=== PATIENT | male | born 1950 | race Caucasian/White ===

== ENCOUNTER → 2024-04-12 | Outpatient (CLI) | payer MEDICARE ==
[2024-04-12 15:16] LABS: Basophils # (A) 0.04 X 10*3/uL (0.00-0.10); Basophils % (A) 0.5 %; Eosinophils % (A) 3.8 %; HCT 41.8 % (39.6-50.0); HGB 13.3 g/dL (13.0-17.0); Lymphocytes # (A) 0.64 X 10*3/uL (0.90-5.00); MCH 29.4 pg (27.0-32.0); MCHC 31.8 g/dL (32.0-37.0); MCV 92.3 FL (80.0-97.0); Mean Platelet Volume 10.5 FL (9.5-12.2); Monocytes # (A) 0.58 X 10*3/uL (0.20-1.00); Monocytes % (A) 7.3 %; NRBC Per 100 WBC 0 X 10*3/uL (0.00-0.01); Neutrophils # (A) 6.37 X 10*3/uL (1.80-7.70); Platelet Count 285 X 10*3/uL (140-440); RBC 4.53 X 10*6/uL (4.40-5.60); RDW 13.7 % (11.5-14.5); WBC 7.96 X 10*3/uL (4.50-10.00)
[2024-04-12 15:36] LABS: BUN/Creat Ratio 15.86 Ratio (12.00-20.00); Blood Urea Nitrogen 22.2 mg/dL (9.0-27.0); Calcium 9.8 mg/dL (8.7-10.3); Carbon Dioxide 24.9 mmol/L (21.6-31.8); Chloride 104 mmol/L (96-109); Glucose 90 mg/dL (70-110); Sodium 142 mmol/L (135-145)
== END | disposition home or self-care (01) ==
LOC: LABWHC1 11:01
PROVIDERS: ATTEND Urology
DX: N40.1 Benign prostatic hyperplasia with lower urinary tract symptoms
CPT/HCPCS: 36415; 80048; 85025

== ENCOUNTER → 2024-07-17 | Outpatient (CLI) | payer MEDICARE ==
[2024-07-17 13:29] VITALS: BP 184/93; PULSE 71; RESP 16
--- NOTE | 2024-07-17 14:53 | P.PAINPG ---
Objective - Vital Signs Vital signs: Intake & Output 07/16/24 07/17/24 07/17/24 18:59 06:59 18:59 Weight 109.769 kg PQRS Measure Charge Sheet Comment: HISTORY OF PRESENT ILLNESS: A 73 yr old male w at side as a referral from [facility] presents today w severe and chronic LBP > 1 yr secondary to radiculopathy, spondylosis and facet arthropathy without myelopathy for evaluation. Pt states pain level is provoked at 8 /10 in intensity, constant, localized in the lumbar spine, predominantly axial, in character w occasional shooting pain towards the buttocks, hips, and LEs. Pain is provoked by bending, standing/ walking for periods > 10 min. Pain is alleviated by PT x 6 wks which ended in May 2024, physician guided home stretches daily since May 2024, heat, medications (Neurontin, Robaxin, Tyl), topical Icy-Hot, repositioning and rest . Oswestry axial pain score at 32. PMH: OA, NIDDM II, MDD, HTN, Hyperlipidemia, Hypothyroidism, Iron Deficiency, Asthma, BPH PSH: Denies SH: Negative x3 FH: Non contributory All: See list Meds: See list incl ASA, THC REVIEW OF ORGAN SYSTEMS: CONSTITUTIONAL: No fevers or chills. No recent weight loss. NEUROLOGICAL: + numbness and tingling along the distal ex tremities. No seizure disorders or headaches. MUSCULOSKELETAL: + pain PSYCHIATRIC: Denies current depression or suicidal thoughts. Physical Examinations : Constitutional : Cooperative , not in acute distress . Neurologic : Cranial nerve II to XII intact. No focal neurological deficits. Psychiatric : alert & oriented x 3. Matching mood & appropriate affect. Judgment & insight intact. Musculoskeletal : Cervical Spine Motor strength in the deltoid and biceps: Normal right side. Normal Left side Motor strength biceps and the wrist extensors: Normal right side . Normal left side Motor strength in the triceps muscle: Normal right side. Normal left side Deep tendon reflexes: Normal at the biceps. Normal at Brachioradialis. Normal at triceps Vertebral body tenderness to deep palpation over Cervical facet loading test: positive bilaterally Spurling test: positive bilaterally Neck distraction test: positive bilaterally Misbah sign: positive bilaterally Lumbar spine Motor strength lower extremities ,thigh and legs 5/5 Right side , 5/5 Left side Deep tendon reflexes : Normal Knee Jerk. Normal Ankle Jerk Vertebral body tenderness over L2 Ferrell Test positive BL L2-L3 Lumbar facet Loading Test: positive Right / positive Left Range of motion of the lumbar spine Flexion 30 degrees, extension 10 degrees Straight Leg Raise test: Left/ Right positive at degrees Pastora test: positive right / positive left. Severe tenderness over the Sacroiliac joint on the Right / Left sides Gaenslen test: positive bilaterally Seated flexion test: positive bilatera lly. Sacral spine : Severe tenderness over the Sacroiliac joint: right side / left side Range of motion: Flexion of the lumbar spine <60 degrees Range of motion: Extension of the lumbar spine <20 degrees Gaenslen's Test positive Pastora test: positive right side / left side Thigh Thrust Test Sacral Thrust Test Imaging: MRI non cotnrast lumbar spien from 05/22/24 reviewed Assessment/ Plan : L2-L3 & L5-S1 radiculopathy Recommendation of BRIANA L2-L3 #1. Would benefit from BRIANA L5-S1 also. Risks, benefits of procedure discussed and patient verbalized understanding. Admits to anti- coagulant use or medical history of diabetes. Protocol for discontinuation/ continuation of medications ishmael procedure discussed. All questions answered. I have spent greater than 30 minutes on patient care today. Dr Jimenez was available by phone for the evaluation of this patient. The time was used to review the medical records including relevant urine studies and Prescription history (MAPs), review of the available imaging, evaluation and examination of the patient, coordination of care with the medical staff and if applicable referring physicians, as well as creation of the medical record Controlled Substance Measures - Controlled Substance Measures Is patient prescribed a controlled substance at discharge?: No
== END ==
LOC: PNWHC3 12:58
PROVIDERS: ATTEND Specialist
DX: M47.27 Other spondylosis with radiculopathy, lumbosacral region (principal); Z88.5 Allergy status to narcotic agent
CPT/HCPCS: 99202

== ENCOUNTER → 2024-08-10 | Day surgery (SDC) | payer MEDICARE ==
[~2024-08-10] MED LIST: IOPAMIDOL M300 15ML VIAL ONE; LACTATED RINGERS 1,000 ML IV SCH; methylPREDNISolone ACETATE 80 MG/ML 1 ML VIAL ONE
[2024-08-10 09:24] VITALS: TEMP 97.8
[2024-08-10 09:31] LABS: Glucose,Whole Blood 95 mg/dL (70-110)
--- NOTE | 2024-08-10 10:30 | P.PCN ---
Description of Procedure: PREOPERATIVE DIAGNOSIS: 1- Lumbar Degenerative Disc Diseases 2-Lumbar spondylosis with Facet arthropathy without myelopathy. 3-lumbar spinal stenosis POSTOPERATIVE DIAGNOSIS: 1-lumbar degenerative disc disease. 2-lumbar spondylosis with facet arthropathy without myelopathy. 3-lumbar spinal stenosis. PROCEDURE Injection of radio contrast material into L2-3interspace, interpretation of epidurogram, injection of steroid at L2-3 epidural space under fluoroscopic guidance. ANESTHESIA: Lidocaine 1% subcutaneously. In OR continuous pulse ox, EKG, blood pressure and verbal communication was maintained with the patient. EBL: Minimal PROCEDURE INDICATION: Before the procedure were discussed with the patient detailed procedure, alternatives, complications including infection, bleeding, nerve damage, paralysis all of which could be permanent. Patient understands and all questions were answered. PROCEDURE DESCRIPTION : After getting consent, patient in OR in prone position. Back was prepped with chlorhexidine and draped in sterile fashion. After injecting 10 mL of 1% lidocaine subcutaneously, a 20-gauge Tuohy needle was introduced at L2-3 interspace with loss of resistance technique using a syringe filled with air. Negative CSF, negative blood, negative paresthesia. Needle position was confirmed with AP and lateral view of the fluoroscope. After repeat negative aspiration 2 mL of Omnipaque 200 water soluble contrast was injected. Contrast was noted in the epidural space. No contrast was noted into intrathecal or intravascular space. After repeat negative aspiration 6 mL solution was injected intermittently which consists of 5 mL of preservative-free normal saline mixed with 1 mL of 80 mg Depo-Medrol. Needle was withdrawn intact. Skin was cleansed and Band-Aids was applied. DISPOSITION / PLANS: The patient tolerated the procedure well. No complication. The patient was placed in a supine position and transferred to the recovery area in a stable condition for observation. There was no evidence of lower extremity motor or sensory deficit after the procedure. Patient was discharged from the recovery room after meeting discharge criteria. Home discharge instructions were given to the patient by the staff. The patient was reexamined prior to discharge. The patient will schedule a follow up in the clinic in 2-4 weeks.
[2024-08-10 10:35] VITALS: BP 153/86; PULSE 72; RESP 16
--- NOTE | 2024-08-10 12:09 | FL ---
EXAMINATION TYPE: FL guided pain mgmt statistic DATE OF EXAM: 08/10/2024 FLUOROSCOPY LUMBAR EPIDURAL STEROID INJECTION, 22 SEC FUORO, DAP .[id number] mGym2 2 images are submitted. [facility], Workstation: [email or web address], 08/10/2024 12:06 PM
== END ==
LOC: ORPAIN 08:48
PROVIDERS: ATTEND Pain Medicine Interventional Pain Medicine
DX: M47.816 Spondylosis without myelopathy or radiculopathy, lumbar region (principal); M48.061 Spinal stenosis, lumbar region without neurogenic claudication; M51.369 Other intervertebral disc degeneration, lumbar region without mention of lumbar back pain or lower extremity pain; Z88.5 Allergy status to narcotic agent; Z79.82 Long term (current) use of aspirin
CPT/HCPCS: 62323; Q9967; J1010

== ENCOUNTER → 2024-08-29 | Outpatient (CLI) | payer MEDICARE ==
[2024-08-29 12:59] VITALS: BP 176/97; PULSE 77; RESP 16; TEMP 97.3
--- NOTE | 2024-08-29 15:46 | P.PAINPG ---
PQRS Measure Charge Sheet Comment: HISTORY OF PRESENT ILLNESS: A 73 yr old male w at side presents today w severe and chronic LBP > 1 yr secondary to radiculopathy, spondylosis and facet arthropathy without myelopathy for evaluation s/p BRIANA L2-L3 #1. Pt states he experienced 90 % pain relief x 3 wks s/p procedure. Pt states pain level is provoked at 6 /10 in intensity, intermittent, localized in the lumbar spine, predominantly axial, achy in character w occasional shooting pain towards the back of the LEs. Pain is provoked by bending, standing/ walking for periods > 10 min. Pain is alleviated by PT x 6 wks which ended in May 2024, physician guided home stretches daily since May 2024, heat, medications, topical, repositioning and rest . Interventional procedures include BRIANA L2-L3 x1 Medications include Neurontin, Robaxin, Tyl, Icy-Hot REVIEW OF ORGAN SYSTEMS: CONSTITUTIONAL: No fevers or chills. No recent weight loss. NEUROLOGICAL: + numbness and tingling along the distal extremities. No seizure disorders or headaches. MUSCULOSKELETAL: + pain PSYCHIATRIC: Denies current depression or suicidal thoughts. Physical Examinations : Constitutional : Cooperative , not in acute distress . Neurologic : Cranial nerve II to XII intact. No focal neurological deficits. Psychiatric : alert & oriented x 3. Matching mood & appropriate affect. Judgment & insight intact. Musculoskeletal : Cervical Spine Motor strength in the deltoid and biceps: Normal right side. Normal Left side Motor strength biceps and the wrist extensors: Normal right side . Normal left side Motor strength in the triceps muscle: Normal right side. Normal left side Deep tendon reflexes: Normal at the biceps. Normal at Brachioradialis. Normal at triceps Vertebral body tenderness to deep palpation over Cervical facet loading test: positive bilaterally Spurling test: positive bilaterally Neck distraction test: positive bilaterally Misbah sign: positive bilaterally Lumbar spine Motor strength lower extremities ,thigh and legs 5/5 Right side , 5/5 Left side Deep tendon reflexes : Normal Knee Jerk. Normal Ankle Jerk Vertebral body tenderness over L5 Ferrell Test positive BL L5-S1 Lumbar facet Loading Test: positive Right / positive Left Range of motion of the lumbar spine Flexion 30 degrees, extension 10 degrees Straight Leg Raise test: Left/ Right positive at degrees Pastora test: positive right / positive left. Severe tenderness over the Sacroiliac joint on the Right / Left sides Gaenslen test: positive bilaterally Seated flexion test: positive bilaterally. Sacral spine : Severe tenderness over the Sacroiliac joint: right side / left side Range of motion: Flexion of the lumbar spine <60 degrees Range of motion: Extension of the lumbar spine <20 degrees Gaenslen's Test positive Pastora test: positive right side / left side Thigh Thrust Test Sacral Thrust Test Imaging: MRI non cotnrast lumbar spine from 05/22/24 reviewed Assessment/ Plan : L2-L3 & L5-S1 radiculopathy Recommendation of BRIANA L5-S1 #2. May benefit from BL lumbar MBBs. Risks, benefits of procedure discussed and patient verbalized understanding. Admits to anti- coagulant use or medical history of diabetes. Protocol for discontinuation/ continuation of medications ishmael procedure discussed. All questions answered. I have spent greater than 30 minutes on patient care today. Dr Jimenez was available by phone for the evaluation of this patient. The time was used to review the medical records including relevant urine studies and Prescription history (MAPs), review of the available imaging, evaluation and examination of the patient, coordination of care with the medical staff and if applicable referring physicians, as well as creation of the medical record PQRS Narrative: Hx Alcohol Use (MH) No Home Medications: Ambulatory Orders Aspirin 81 mg PO DAILY 08/08/24 Atorvastatin [Lipitor] 40 mg PO DAILY 08/08/24 EPINEPHrine (Auto Inject) [Epipen] 0.3 mg IM ONCE PRN 08/08/24 Escitalopram Oxalate [Lexapro] 10 mg PO DAILY 08/08/24 Finasteride [Proscar] 5 mg PO DAILY 08/08/24 Levothyroxine Sodium [Synthroid] 200 mcg PO DAILY 08/08/24 QUEtiapine FUMARATE [SEROquel] 200 mg PO HS 08/08/24 amLODIPine [Norvasc] 10 mg PO DAILY 08/08/24 buPROPion XL [Wellbutrin XL] 300 mg PO DAILY 08/08/24 carvediloL [Coreg] 12.5 mg PO BID 08/08/24 metFORMIN HCL [Glucophage] 1,000 mg PO BID 08/08/24 Albuterol Sulfate [Proair Digihaler] 1 puff INHALATION DAILY 08/29/24 Alfuzosin HCl [Alfuzosin HCl ER] 10 mg PO HS 08/29/24 Aspirin EC [Ecotrin] 325 mg PO DAILY 08/29/24 Ciprofloxacin HCl [Cipro] 500 mg PO Q12HR 08/29/24 Cyanocobalamin (Vitamin B-12) [Vitamin B-12] 1,000 mcg PO DAILY 08/29/24 Fluticasone Nasal [place] [Flonase Nasal [place]] 1 spray EA NOSTRIL DAILY 08/29/24 Sildenafil Citrate [Viagra] 100 mg PO DAILY 08/29/24 methocarbamoL [Robaxin-750] 750 mg PO TID 08/29/24 Controlled Substance Measures - Controlled Substance Measures Is patient prescribed a controlled substance at discharge?: No
== END ==
LOC: PNWHC3 12:26
PROVIDERS: ATTEND Specialist
DX: M54.17 Radiculopathy, lumbosacral region (principal); Z88.5 Allergy status to narcotic agent; Z88.8 Allergy status to other drugs, medicaments and biological substances
CPT/HCPCS: 99211

== ENCOUNTER 2024-09-25 06:20 | Day surgery (SDC) | payer MEDICARE ==
[2024-09-24 10:16] VITALS: BMI 34.2
[~2024-09-25 06:20] MED LIST changes: -IOPAMIDOL M300 15ML VIAL ONE; -methylPREDNISolone ACETATE 80 MG/ML 1 ML VIAL ONE
[2024-09-25 06:47] VITALS: TEMP 97.6
[2024-09-25 06:51] LABS: Glucose,Whole Blood 100 mg/dL (70-110)
[2024-09-25] MEDS ORDERED: LACTATED RINGERS 1,000 ML IV SCH (07:15)
[2024-09-25] MEDS ORDERED: methylPREDNISolone ACETATE 40 MG/ML 1 ML VIAL ONE (07:25)
[2024-09-25] MEDS ORDERED: IOPAMIDOL M200 10 ML VIAL ONE (07:25)
--- NOTE | 2024-09-25 07:35 | P.PCN ---
Date of Procedure: 09/25/24 Description of Procedure: Diagnosis: Lumbar spondylosis without myelopathy, and lumbar radiculopathy Procedure: L5-S1 Inter-Laminar Lumbar Epidural Steroid Injection under biplanar fluoroscopy Surgeon: Jany Hutchison Anesthesia: Local: 1% Lidocaine, IV sedation : None Complications: None Estimated blood loss: None Specimens removed: none. Fluoroscopic image: Saved to patient EMR. Indications for Procedure: The patient has been suffering from lower back pain and leg pain. Inadequate pain control with pharmacologic regimen. Came here for lumbar epidural steroid injection for better pain control. Procedure and Findings: The patient was seen and examined in the holding area. The written informed consent was obtained after explaining the risks, benefits, and alternatives of the procedure to the patient. The patient was brought to the procedure room and was placed in the prone position on the operating room table. A pillow was placed under the abdomen to reduce lumbar lordosis. The anesthesia was started as mentioned above and monitoring was done with noninvasive blood pressure cuff, EKG and pulse oximetry. The skin preparation was done with ChloraPrep and draping was done in usual sterile fashion. Sterile technique was observed throughout the procedure. Under fluoroscopic guidance, the L5-S1 inter-laminar space was identified. 3 ml of 1% Lidocaine was injected with a 25 gauge needle to achieve adequate local anesthesia of the skin and subcutaneous tissue. A 20 gauge, 3.5 inch Tuohy type epidural needle was placed and advanced up to the epidural space using loss of resistance technique and fluoroscopic guidance. No paresthesia was noted. A negative aspiration was confirmed and then 1.5 ml Isovue was injected. A good dye spread was seen in the epidural space and it was negative for any intrathecal, intraneural or intravascular spread. A total of 6 ml solution containing Depo-Medrol 40 mg with 5 mL of preservative-free Normal Saline was injected slowly with intermittent aspiration. The needle was removed intact, area was cleaned and bandage was applied. Disposition : The patient tolerated the procedure very well. The patient was transferred to the recovery room and remained stable until discharged home. The patient was given detailed discharge instructions for infection, bleeding, headache , leg weekness, and increased pain at the injection site, and was advised to seek immediate medical attention should significant side effects develop. The patient will be followed up with our Pain Clinic within 4 to 8 weeks for a repeat procedure if it is helpful.
--- NOTE | 2024-09-25 07:54 | FL ---
EXAMINATION TYPE: FL guided pain mgmt statistic DATE OF EXAM: 09/25/2024 CLINICAL INDICATION: Male, 74 years old with history of LESI; PHH, low back pain TECHNIQUE: Fluoroscopy. COMPARISON: None. FINDINGS: Fluoroscopic guidance was provided during pain relief procedure performed by Dr. Johnston. A total of 4.9 seconds of fluoroscopic time was utilized during the procedure and two spot images ar e acquired. Images acquired shows needle localization at the L5 level. Moderate disc space narrowing L5-S1 level is present. Total DAP: 0.31753 mGym2. IMPRESSION: As Above. [facility], , 09/25/2024 7:52 AM
[2024-09-25 07:57] VITALS: BP 153/83; PULSE 67; RESP 14
== END 2024-09-25 08:08 | disposition home or self-care (01) ==
LOC: ORPAIN 06:20
DX: M47.26 Other spondylosis with radiculopathy, lumbar region (principal); E11.9 Type 2 diabetes mellitus without complications; Z79.82 Long term (current) use of aspirin; Z79.84 Long term (current) use of oral hypoglycemic drugs; Z88.5 Allergy status to narcotic agent; Z88.8 Allergy status to other drugs, medicaments and biological substances
CPT/HCPCS: 62323; Q9966; J1010

== ENCOUNTER → 2024-10-15 | Outpatient (CLI) | payer MEDICARE ==
[2024-10-15 12:37] VITALS: BP 158/94; PULSE 70; RESP 17; TEMP 98.2
--- NOTE | 2024-10-15 15:17 | P.PAINPG ---
PQRS Measure Charge Sheet Comment: HISTORY OF PRESENT ILLNESS: A 74 yr old male w at side presents today w severe and chronic LBP > 1 yr secondary to radiculopathy, spondylosis and facet arthropathy without myelopathy for evaluation s/p BRIANA L5-S1 #2. Pt states he experienced 80 % pain relief x 2 wks s/p procedure. Pt states pain level is provoked at 5-6 /10 in intensity, intermittent, localized in the lumbar spine, predominantly axial, achy in character without shooting pain. Pain is provoked by standing, walking for periods > 15 min. Pain is alleviated by PT x 6 wks which ended in May 2024 (cerv), physician guided home stretches daily since May 2024, heat, medications, topical, repositioning and rest. Interventional procedures include BRIANA L2-L3 x1, L5-S1 x1 Medications include Neurontin, Robaxin, Tyl, Ibu, Icy-Hot REVIEW OF ORGAN SYSTEMS: CONSTITUTIONAL: No fevers or chills. No recent weight loss. NEUROLOGICAL: + numbness and tingling along the distal extremities. No seizure disorders or headaches. MUSCULOSKELETAL: + pain PSYCHIATRIC: Denies current depression or suicidal thoughts. Physical Examinations : Constitutional : Cooperative , not in acute distress . Neurologic : Cranial nerve II to XII intact. No focal neurological deficits. Psychiatric : alert & oriented x 3. Matching mood & appropriate affect. Judgment & insight intact. Musculoskeletal : Cervical Spine Motor strength in the deltoid and biceps: Normal right side. Normal Left side Motor strength biceps and the wrist extensors: Normal right side . Normal left side Motor strength in the triceps muscle: Normal right side. Normal left side Deep tendon reflexes: Normal at the biceps. Normal at Brachioradialis. Normal at triceps Vertebral body tenderness to deep palpation over Cervical facet loading test: positive bilaterally Spurling test: positive bilaterally Neck distraction test: positive bilaterally Misbah sign: positive bilaterally Lumbar spine Motor strength lower extremities ,thigh and legs 5/5 Right side , 5/5 Left side Deep tendon reflexes : Normal Knee Jerk. Normal Ankle Jerk Vertebral body tenderness over L5 Ferrell Test positive BL L5-S1 Lumbar facet Loading Test: positive Right / positive Left L4-L5, L5-S1 Range of motion of the lumbar spine Flexion 30 degrees, extension 10 degrees Straight Leg Raise test: Left/ Right positive at degrees Pastora test: positive right / positive left. Severe tenderness over the Sacroiliac joint on the Right / Left sides Gaenslen test: positive bilaterally Seated flexion test: positive bilaterally. Sacral spine : Severe tenderness over the Sacroiliac joint: right side / left side Range of motion: Flexion of the lumbar spine <60 degrees Range of motion: Extension of the lumbar spine <20 degrees Gaenslen's Test positive Pastora test: positive right side / left side Thigh Thrust Test Sacral Thrust Test Imaging: MRI non cotnrast lumbar spine from 05/22/24 reviewed Assessment/ Plan : L2-L3 & L5-S1 radiculopathy Recommendation of BL MBB L4-L5/ L5-S1 #1. Risks, benefits of procedure discussed and patient verbalized understanding. Admits to anti- coagulant use or medical history of diabetes. Protocol for discontinuation/ continuation of medications ishmael procedure discussed. Minimal anesthesia including Fentanyl and Versed if clinically indicated. All questions answered. I have spent greater than 30 minutes on patient care today. Dr Jimenez was available by phone for the evaluation of this patient. The time was used to review the medical records including relevant urine studies and Prescription history (MAPs), review of the available imaging, evaluation and examination of the patient, coordination of care with the medical staff and if applicable referring physicians, as well as creation of the medical record PQRS Narrative: Hx Alcohol Use (MH) No Home Medications: Ambulatory Orders Atorvastatin [Lipitor] 40 mg PO DAILY 08/08/24 EPINEPHrine (Auto Inject) [Epipen] 0.3 mg IM ONCE PRN 08/08/24 Escitalopram Oxalate [Lexapro] 10 mg PO DAILY 08/08/24 Finasteride [Proscar] 5 mg PO DAILY 08/08/24 Levothyroxine Sodium [Synthroid] 200 mcg PO DAILY 08/08/24 QUEtiapine FUMARATE [SEROquel] 200 mg PO HS 08/08/24 amLODIPine [Norvasc] 10 mg PO DAILY 08/08/24 buPROPion XL [Wellbutrin XL] 300 mg PO DAILY 08/08/24 carvediloL [Coreg] 12.5 mg PO BID 08/08/24 metFORMIN HCL [Glucophage] 1,000 mg PO BID 08/08/24 Albuterol Sulfate [Proair Digihaler] 1 puff INHALATION DAILY 08/29/24 Alfuzosin HCl [Alfuzosin HCl ER] 10 mg PO HS 08/29/24 Aspirin EC [Ecotrin] 325 mg PO DAILY 08/29/24 Cyanocobalamin (Vitamin B-12) [Vitamin B-12] 1,000 mcg PO DAILY 08/29/24 Fluticasone Nasal [place] [Flonase Nasal [place]] 1 spray EA NOSTRIL DAILY 08/29/24 Sildenafil Citrate [Viagra] 100 mg PO DAILY 08/29/24 methocarbamoL [Robaxin-750] 750 mg PO TID 08/29/24 Controlled Substance Measures - Controlled Substance Measures Is patient prescribed a controlled substance at discharge?: No
== END ==
LOC: PNWHC3 12:14
PROVIDERS: ATTEND Specialist
DX: M54.17 Radiculopathy, lumbosacral region (principal); Z88.5 Allergy status to narcotic agent; Z88.8 Allergy status to other drugs, medicaments and biological substances
CPT/HCPCS: 99212

== ENCOUNTER 2024-10-19 06:43 | Day surgery (SDC) | payer MEDICARE ==
[2024-10-17 16:20] VITALS: BMI 34.4
[2024-10-19 07:20] VITALS: RESP 16; TEMP 97.5
[2024-10-19 07:26] LABS: Glucose,Whole Blood 97 mg/dL (70-110)
[2024-10-19] MEDS: IV FLUID CONTINUATION 1,000 ML IV ONE ×2 (07:27→08:19)
[2024-10-19] MEDS: LACTATED RINGERS 1,000 ML IV SCH (07:27)
[2024-10-19] MEDS ORDERED: fentaNYL (PF) 50 MCG/ML 2 ML AMP ONE (08:04)
[2024-10-19] MEDS ORDERED: MIDAZOLAM 2 MG/2 ML VIAL ONE (08:04)
[2024-10-19] MEDS ORDERED: ROPIVACAINE 5MG/ML 20ML VIAL ONE (08:04)
[2024-10-19 08:35] VITALS: BP 151/89; PULSE 61
--- NOTE | 2024-10-19 09:13 | P.PCN ---
Date of Procedure: 10/19/24 Procedure(s) Performed: PREOPERATIVE DIAGNOSIS : 1- Lumbar spondylosis with Facet Arthropathy with out myelopathy . 2- Lumber degenerative disc disease POSTOPERATIVE DIAGNOSIS: 1- Lumbar spondylosis with Facet Arthropathy without myelopathy . 2- Lumber degenerative disc disease PROCEDURE: Diagnostic bilateral L3 , L4 , and L5 medial branch block under fluoroscopy guidance(fluoroscopy images available in the radiology Department ) ( To target the facet joint between Bilateral L4-5 , and L5-S1 )#1st ANESTHESIA: moderate sedation with intravenous Versed 1 mg and Fentanyl 50 mcg.(Sedation start time 08:04, end time 08:13 ) EBL: Minimal COMPLICATION: None PROCEDURE INDICATION: Chronic low back pain secondary to Facet arthropathy unresponsive to conservative treatment. PROCEDURE DESCRIPTION: the patient was seen and identified in the preop holding area , risks and benefits and possible complications of the procedure and alternative were discussed with the patient, and the patient agreed to proceed with the procedure and signed the consent and vital signs monitored during the procedure and fluoroscopy was used to maximize the benefit and accuracy of the needle placement, and sedation was given to decrease patient anxiety, patient was taken to the procedure room and placed in prone position vital signs monitored in the back prepped with chlorhexidine X3 then under strict sterile technique using a right oblique fluoroscopy ,the junction of the transverse process and the superior articulating process of the right L3 , L4 , and L5 vertebra which corresponding to the fluoroscopy image of the eye of the Shantanu dog on the block side for the medial branches and subsequently , after local infiltration of skin and subcu tissuies with Ropivacaine 0.5 % , one mL at each level ,then 23-gauge Quincke-type needles , 3 needle was used , each one of them placed at the junction of the base of the transverse process and the superior articular process at the appropriate level, and the needle was advanced until the periosteum contacted, needle placement confirmed with AP oblique and lateral view and after appropriate needle placement confirmed, and after negative aspiration for heme and CSF and there was no paresthesia 1-1/2 mL of Ropivacaine 0.5% used , then half mL injected at each level after negative aspiration the needle subsequently removed and the same procedure repeated for the left side at left side at L3 , L4 and L5 levels. At the end of the procedure and the needles removed and a bandage applied after the skin was cleaned the cleaning solution patient taken to recovery room in stable condition and monitors in the recovery room for 20-30 minutes and discharged home in stable condition after discharge criteria met and patient will follow up with the pain clinic in 2-4 weeks
--- NOTE | 2024-10-19 11:49 | FL ---
EXAMINATION TYPE: FL guided pain mgmt statistic DATE OF EXAM: 10/19/2024 11:23 AM COMPARISON: Pre Operative Images if available both CT/MRI or plain film CLINICAL INDICATION: Male, 74 years old with history of PAIN; TECHNIQUE: FL guided pain mgmt statistic, multiple fluoroscopic images provided for procedure. DAP: 0.15131 mGym2 Gycm2 uGym2 cGycm2 or equivalent. FINDINGS: Fluoroscopic images during injection for pain management demonstrate multilevel degeneration changes throughout the spine. No evidence for fracture. No acute process identified. IMPRESSION: 1. No evidence for intraoperative complication. 2. Please see the operative/procedural note for further details. [facility], , 10/19/2024 11:46 AM
== END 2024-10-19 08:54 | disposition home or self-care (01) ==
LOC: ORPAIN 06:43
PROVIDERS: ATTEND Specialist
DX: M47.816 Spondylosis without myelopathy or radiculopathy, lumbar region (principal); M51.369 Other intervertebral disc degeneration, lumbar region without mention of lumbar back pain or lower extremity pain; G89.29 Other chronic pain
CPT/HCPCS: 64493; 64494 ×2; J2250; J3010; J2795; 99152

== ENCOUNTER → 2024-11-05 | Outpatient (CLI) | payer MEDICARE ==
[2024-11-05 11:21] VITALS: BP 166/89; PULSE 77; RESP 16
--- NOTE | 2024-11-05 13:29 | P.PAINPG ---
Objective - Vital Signs Vital signs: Vital Signs Temp Pulse 77 11/05/24 11:17 Resp 16 11/05/24 11:17 BP 166/89 11/05/24 11:17 Pulse Ox 98 11/05/24 11:17 FiO2 Intake & Output 11/04/24 11/05/24 11/05/24 18:59 06:59 18:59 Weight 108.862 kg PQRS Measure Charge Sheet Mode of Arrival: Ambulatory Comment: HISTORY OF PRESENT ILLNESS: A 74 yr old male w at [facility] presents today w severe and chronic LBP > 1 yr secondary to radiculopathy, spondylosis and facet arthropathy without myelopathy for evaluation s/p BL MBB L4-L5/ L5-S1 #1. Pt states he experienced 80 % pain relief x 3 days s/p procedure. Pt states pain level is provoked at 6 /10 in intensity, intermittent, localized in the lumbar spine, predominantly axial, achy in character without shooting pain. Pain is provoked by standing, walking for periods > 15 min. Pain is alleviated by PT x 6 wks which ended in May 2024 (cerv), physician guided home stretches daily since May 2024, heat, medications, topical, repositioning and rest. Interventional procedures include BRIANA L2-L3 x1, L5-S1 x1, BL MBB L3-L5 x1 Medications include Neurontin, Robaxin, Tyl, Ibu, Icy-Hot REVIEW OF ORGAN SYSTEMS: CONSTITUTIONAL: No fevers or chills. No recent weight loss. NEUROLOGICAL: + numbness and tingling along the distal extremities. No seizure disorders or headaches. MUSCULOSKELETAL: + pain PSYCHIATRIC: Denies current depression or suicidal thoughts. Physical Examinations : Constitutional : Cooperative , not in acute distress . Neurologic : Cranial nerve II to XII intact. No focal neurological deficits. Psychiatric : alert & oriented x 3. Matching mood & appropriate affect. Judgment & insight intact. Musculoskeletal : Cervical Spine Motor strength in the deltoid and biceps: Normal right side. Normal Left side Motor strength biceps and the wrist extensors: Normal right side . Normal left side Motor strength in the triceps muscle: Normal right side. Normal left side Deep tendon reflexes: Normal at the biceps. Normal at Brachioradialis. Normal at triceps Vertebral body tenderness to deep palpation over Cervical facet loading test: positive bilaterally Spurling test: positive bilaterally Neck distraction test: positive bilaterally Misbah sign: positive bilaterally Lumbar spine Motor strength lower extremities ,thigh and legs 5/5 Right side , 5/5 Left side Deep tendon reflexes : Normal Knee Jerk. Normal Ankle Jerk Vertebral body tenderness over L5 Ferrell Test positive BL L5-S1 Lumbar facet Loading Test: positive Right / positive Left L4-L5, L5-S1 Range of motion of the lumbar spine Flexion 30 degrees, extension 10 degrees Straight Leg Raise test: Left/ Right positive at degrees Pastora test: positive right / positive left. Severe tenderness over the Sacroiliac joint on the Right / Left sides Gaenslen test: positive bilaterally Seated flexion test: positive bilaterally. Sacral spine : Severe tenderness over the Sacroiliac joint: right side / left side Range of motion: Flexion of the lumbar spine <60 degrees Range of motion: Extension of the lumbar spine <20 degrees Gaenslen's Test positive Pastora test: positive right side / left side Thigh Thrust Test Sacral Thrust Test Imaging: MRI non cotnrast lumbar spine from 05/22/24 reviewed Assessment/ Plan : L2-L3 & L5-S1 radiculopathy Recommendation of BL MBB L4-L5/ L5-S1 #2. Risks, benefits of procedure discussed and patient verbalized understanding. Admits to anti- coagulant use or medical history of diabetes. Protocol for discontinuation/ continuation of medications ishmael procedure discussed. Minimal anesthesia including Fentanyl and Versed if clinically indicated. All questions answered. I have spent greater than 30 minutes on patient care today. Dr Jimenez was available by phone for the evaluation of this patient. The time was used to review the medical records including relevant urine studies and Prescription history (MAPs), review of the available imaging, evaluation and examination of the patient, coordination of care with the medical staff and if applicable refer ring physicians, as well as creation of the medical record - Pain Location Bilateral Lower Back Non-Pharmacological Interventions: Inactivity, Physical Therapy, Position/Reposition, Stretching Pharmacological Interventions: Block, Epidural, PRN Medication, Topical Medication PQRS Narrative: Blood Pressure 166/89 Pain Intensity [Bilateral 6 Lower Back] Scale Used Numeric (1 - 10) Hx Alcohol Use (MH) No Home Medications: Ambulatory Orders Atorvastatin [Lipitor] 40 mg PO DAILY 08/08/24 EPINEPHrine (Auto Inject) [Epipen] 0.3 mg IM ONCE PRN 08/08/24 Escitalopram Oxalate [Lexapro] 10 mg PO DAILY 08/08/24 Finasteride [Proscar] 5 mg PO DAILY 08/08/24 Levothyroxine Sodium [Synthroid] 200 mcg PO DAILY 08/08/24 QUEtiapine FUMARATE [SEROquel] 200 mg PO HS 08/08/24 amLODIPine [Norvasc] 10 mg PO DAILY 08/08/24 buPROPion XL [Wellbutrin XL] 300 mg PO DAILY 08/08/24 carvediloL [Coreg] 12.5 mg PO BID 08/08/24 metFORMIN HCL [Glucophage] 1,000 mg PO BID 08/08/24 Albuterol Sulfate [Proair Digihaler] 1 puff INHALATION DAILY 08/29/24 Alfuzosin HCl [Alfuzosin HCl ER] 10 mg PO HS 08/29/24 Aspirin EC [Ecotrin] 325 mg PO DAILY 08/29/24 Cyanocobalamin (Vitamin B-12) [Vitamin B-12] 1,000 mcg PO DAILY 08/29/24 methocarbamoL [Robaxin-750] 750 mg PO TID 08/29/24 Controlled Substance Measures - Controlled Substance Measures Is patient prescribed a controlled substance at discharge?: No
== END ==
LOC: PNWHC3 11:09
PROVIDERS: ATTEND Specialist
DX: M47.26 Other spondylosis with radiculopathy, lumbar region (principal); F12.90 Cannabis use, unspecified, uncomplicated; Z88.5 Allergy status to narcotic agent; Z88.6 Allergy status to analgesic agent
CPT/HCPCS: 99211

== ENCOUNTER 2024-11-22 06:13 | Day surgery (SDC) | payer MEDICARE ==
[2024-11-22 07:02] LABS: Glucose,Whole Blood 81 mg/dL (70-110)
[2024-11-22] MEDS: IV FLUID CONTINUATION 1,000 ML IV ONE ×2 (07:02→07:49)
[2024-11-22 07:04] VITALS: RESP 16; TEMP 97.4
[2024-11-22] MEDS: LACTATED RINGERS 1,000 ML IV SCH (07:06)
[2024-11-22] MEDS ORDERED: MIDAZOLAM 2 MG/2 ML VIAL ONE (07:32)
[2024-11-22] MEDS ORDERED: ROPIVACAINE 5MG/ML 20ML VIAL ONE (07:32)
[2024-11-22] MEDS ORDERED: hydrALAZINE HCL 20 MG/ML 1 ML VIAL ONE (07:32)
[2024-11-22] MEDS ORDERED: fentaNYL (PF) 50 MCG/ML 2 ML AMP ONE (07:32)
--- NOTE | 2024-11-22 07:43 | P.PCN ---
Date of Procedure: 11/22/24 Procedure(s) Performed: PREOPERATIVE DIAGNOSIS : 1- Lumbar spondylosis with Facet Arthropathy without myelopathy . 2- Lumber degenerative disc disease POSTOPERATIVE DIAGNOSIS: 1- Lumbar spondylosis with Facet Arthropathy without myelopathy . 2- Lumber degenerative disc disease PROCEDURE: Diagnostic bilateral L3 , L4 , and L5 medial branch block under fluoroscopy guidance(fluoroscopy images available in the radiology Department ) ( To target the facet joint between Bilateral L4-5 , and L5-S1 )#2nd ANESTHESIA: moderate sedation with intravenous Versed 1 mg and Fentanyl 50 mcg.(Sedation start time 07:32, end time 07:40 ) EBL: Minimal COMPLICATION: None PROCEDURE INDICATION: Chronic low back pain secondary to Facet arthropathy unresponsive to conservative treatment. PROCEDURE DESCRIPTION: the patient was seen and identified in the preop holding area , risks and benefits and possible complications of the procedure and alternative were discussed with the patient, and the patient agreed to proceed with the procedure and signed the consent and vital signs monitored during the procedure and fluoroscopy was used to maximize the benefit and accuracy of the needle placement, and sedation was given to decrease patient anxiety, patient was taken to the procedure room and placed in prone position vital signs monitored in the back prepped with chlorhexidine X3 then under strict sterile technique using a right oblique fluoroscopy ,the junction of the transverse process and the superior articulating process of the right L3 , L4 , and L5 vertebra which corresponding to the fluoroscopy image of the eye of the Shantanu dog on the block side for the medial branches and subsequently , after local infiltration of skin and subcu tissuies with Ropivacaine 0.5 % , one mL at each level ,then 23-gauge Quincke-type needles , 3 needle was used , each one of them placed at the junction of the base of the transverse process and the superior articular process at the appropriate level, and the needle was advanced until the periosteum contacted, needle placement confirmed with AP oblique and lateral view and after appropriate needle placement confirmed, and after negative aspiration for heme and CSF and there was no paresthesia 1-1/2 mL of Ropivacaine 0.5% used , then half mL injected at each level after negative aspiration the needle subsequently removed and the same procedure repeated for the left side at left side at L3 , L4 and L5 levels. At the end of the procedure and the needles removed and a bandage applied after the skin was cleaned the cleaning solution patient taken to recovery room in stable condition and monitors in the recovery room for 20-30 minutes and discharged home in stable condition after discharge criteria met and patient will follow up with the pain clinic in 2-4 weeks
--- NOTE | 2024-11-22 07:59 | FL ---
Fluoroscopy INDICATION: Pain FINDINGS: Fluoroscopy time: 26.4 seconds. Total dose area product (DAP) in uGy*m?, mGy*cm? (or similar): 0.66657 Images obtained: 5. Images document [place] directed towards the lumbar spine IMPRESSION: 1. Documentation of fluoroscopy. [facility], , 11/22/2024 7:56 AM
[2024-11-22 08:16] VITALS: BP 150/78; PULSE 68
== END 2024-11-22 08:17 ==
LOC: ORPAIN 06:13
PROVIDERS: ATTEND Specialist
DX: M47.816 Spondylosis without myelopathy or radiculopathy, lumbar region (principal); M51.369 Other intervertebral disc degeneration, lumbar region without mention of lumbar back pain or lower extremity pain; G89.29 Other chronic pain; Z88.8 Allergy status to other drugs, medicaments and biological substances; Z88.5 Allergy status to narcotic agent
CPT/HCPCS: 64493; 64494; J2250; J0360; J3010; J2795

== ENCOUNTER → 2024-12-12 | Outpatient (CLI) | payer MEDICARE ==
[2024-12-12 13:39] VITALS: BP 156/91; PULSE 78; RESP 16; TEMP 97.1
--- NOTE | 2024-12-12 15:57 | P.PAINPG ---
Objective - Vital Signs Vital signs: Intake & Output 12/11/24 12/12/24 12/12/24 18:59 06:59 18:59 Weight 108.862 kg PQRS Measure Charge Sheet Comment: HISTORY OF PRESENT ILLNESS: A 74 yr old male w at side presents today w severe and chronic LBP > 1 yr secondary to radiculopathy, spondylosis and facet arthropathy without myelopathy for evaluation s/p BL MBB L4-L5/ L5-S1 #2. Pt states he experienced 100 % pain relief x 7 days s/p procedure. Pt states pain level is provoked at 6 /10 in intensity, intermittent, localized in the lumbar spine, predominantly axial, achy in character without shooting pain. Pain is provoked by standing, walking for periods > 15 min. Pain is alleviated by PT x 6 wks which ended in May 2024 (cerv), physician guided home stretches daily since May 2024, heat, medications, topical, repositioning and rest. Interventional procedures include BRIANA L2-L3 x1, L5-S1 x1, BL MBB L3-L5 x2 Medications include Neurontin, Robaxin, Tyl, Ibu, Icy-Hot REVIEW OF ORGAN SYSTEMS: CONSTITUTIONAL: No fevers or chills. No recent weight loss. NEUROLOGICAL: + numbness and tingling along the distal extremities. No seizure disorders or headaches. MUSCULOSKELETAL: + pain PSYCHIATRIC: Denies current depression or suicidal thoughts. Physical Examinations : Constitutional : Cooperative , not in acute distress . Neurologic : Cranial nerve II to XII intact. No focal neurological deficits. Psychiatric : alert & oriented x 3. Matching mood & appropriate affect. Judgment & insight intact. Musculoskeletal : Cervical Spine Motor strength in the deltoid and biceps: Normal right side. Normal Left side Motor strength biceps and the wrist extensors: Normal right side . Normal left side Motor strength in the triceps muscle: Normal right side. Normal left side Deep tendon reflexes: Normal at the biceps. Normal at Brachioradialis. Normal at triceps Vertebral body tenderness to deep palpation over Cervical facet loading test: positive bilaterally Spurling test: positive bilaterally Neck distraction test: positive bilaterally Misbah sign: positive bilaterally Lumbar spine Motor strength lower extremities ,thigh and legs 5/5 Right side , 5/5 Left side Deep tendon reflexes : Normal Knee Jerk. Normal Ankle Jerk Vertebral body tenderness over L5 Ferrell Test positive BL L5-S1 Lumbar facet Loading Test: positive Right / positive Left L4-L5, L5-S1 Range of motion of the lumbar spine Flexion 30 degrees, extension 10 degrees Straight Leg Raise test: Left/ Right positive at degrees Pastora test: positive right / positive left. Severe tenderness over the Sacroiliac joint on the Right / Left sides Gaenslen test: positive bilaterally Seated flexion test: positive bilaterally. Sacral spine : Severe tenderness over the Sacroiliac joint: right side / left side Range of motion: Flexion of the lumbar spine <60 degrees Range of motion: Extension of the lumbar spine <20 degrees Gaenslen's Test positive Pastora test: positive right side / left side Thigh Thrust Test Sacral Thrust Test Imaging: MRI non cotnrast lumbar spine from 05/22/24 reviewed Assessment/ Plan : L2-L3 & L5-S1 radiculopathy Recommendation of BL RFA L4-L5/ L5-S1. Risks, benefits of procedure discussed and patient verbalized understanding. Admits to anti- coagulant use or medical history of diabetes. Protocol for discontinuation/ continuation of medications ishmael procedure discussed. Minimal anesthesia including Fentanyl and Versed if clinically indicated. All questions answered. I have spent greater than 30 minutes on patient care today. Dr Jimenez was available by phone for the evaluation of this patient. The time was used to review the medical records including relevant urine studies and Prescription history (MAPs), review of the available imaging, evaluation and examination of the patient, coordination of care with the medical staff and if applicable referring physicians, as well as creation of the medical record - Pain Location Bilateral Lower Back Non-Pharmacological Interventions: Heat, Ice, Inactivity, Physical Therapy, Position/Reposition, Relaxation Technique, Sitting, Stretching Pharmacological Interventions: Block, Epidural, PRN Medication, Scheduled Medication PQRS Narrative: Hx Alcohol Use (MH) No Home Medications: Ambulatory Orders Atorvastatin [Lipitor] 40 mg PO DAILY 08/08/24 EPINEPHrine (Auto Inject) [Epipen] 0.3 mg IM ONCE PRN 08/08/24 Escitalopram Oxalate [Lexapro] 10 mg PO DAILY 08/08/24 Finasteride [Proscar] 5 mg PO DAILY 08/08/24 Levothyroxine Sodium [Synthroid] 200 mcg PO DAILY 08/08/24 QUEtiapine FUMARATE [SEROquel] 200 mg PO HS 08/08/24 amLODIPine [Norvasc] 10 mg PO DAILY 08/08/24 buPROPion XL [Wellbutrin XL] 300 mg PO DAILY 08/08/24 carvediloL [Coreg] 12.5 mg PO BID 08/08/24 metFORMIN HCL [Glucophage] 1,000 mg PO BID 08/08/24 Albuterol Sulfate [Proair Digihaler] 1 puff INHALATION DAILY PRN 08/29/24 Alfuzosin HCl [Alfuzosin HCl ER] 10 mg PO HS 08/29/24 Aspirin EC [Ecotrin] 325 mg PO DAILY 08/29/24 Aspirin 325 mg PO DAILY 12/12/24 Controlled Substance Measures - Controlled Substance Measures Is patient prescribed a controlled substance at discharge?: No
== END ==
LOC: PNWHC3 13:22
PROVIDERS: ATTEND Specialist
DX: M47.27 Other spondylosis with radiculopathy, lumbosacral region (principal); Z88.5 Allergy status to narcotic agent; Z88.8 Allergy status to other drugs, medicaments and biological substances
CPT/HCPCS: 99211

== ENCOUNTER 2025-01-01 06:13 | Day surgery (SDC) | payer MEDICARE ==
[2025-01-01 06:48] LABS: Glucose,Whole Blood 97 mg/dL (70-110)
[2025-01-01] MEDS: LACTATED RINGERS 1,000 ML IV SCH (06:50)
[2025-01-01] MEDS: LACTATED RINGERS 1,000 ML IV ONE (06:53)
[2025-01-01 06:57] VITALS: TEMP 98
[2025-01-01] MEDS ORDERED: fentaNYL (PF) 50 MCG/ML 2 ML AMP ONE (07:47)
[2025-01-01] MEDS ORDERED: ROPIVACAINE 5 MG/ML 30 ML VIAL ONE (07:47)
--- NOTE | 2025-01-01 08:18 | P.PCN ---
Date of Procedure: 01/01/25 Description of Procedure: Pre and postop diagnosis: Lumbar spondylosis without myelopathy Physician: Trevor Feliciano MD Name of procedure: Bilateral lumbar medial branch radiofrequency ablation under fluoroscopic guidance for the medial branches L3, L4 and lateral branch of L5 Anesthesia: Local with lidocaine 1% and IV moderate conscious sedation with 100 mcg of fentanyl Description of procedure: The patient was seen in the preop holding area consent was obtained and she was brought into the procedure room and placed in prone position. ASA monitors were applied. Skin was prepped with ChloraPrep and draped in a sterile manner. Lidocaine 1% was used to numb the skin and the target areas as follows: For the dorsal branch of L5 the target point was at the sacral ala on the AP view of fluoroscopy and for the L3 and L4 medial branches the target points were at the connection between the transverse process and the superior articular process of L4 on L5 vertebra respectively on the oblique view of fluoroscopy. I used 18-gauge 100 mm in length with 10 mm active tip radiofrequency ablation needles for this procedure. AP, oblique, and lateral views of fluoroscopy were used to verify needle tip positions. Motor stimulation was then commenced with no radicular stimulation in the lower extremities. After that injected 0.5 mL of lidocaine 1% in each needle before starting radiofrequency ablation at 80 C for 90 seconds. After finishing the ablation I injected 1 mL of of ropivacaine 0.5% in each needle before taking the needles out intact. Picture of needle tip position was saved to the C arm in the radiology department. Patient tolerated procedure well. Sedation time: [id number]
[2025-01-01] MEDS: IV FLUID CONTINUATION 1,000 ML IV ONE (08:24)
[2025-01-01 08:31] VITALS: RESP 16
[2025-01-01] MEDS: LABETALOL SYRINGE 5 MG/ML (4 ML SYR) IVP STA (08:45)
--- NOTE | 2025-01-01 08:55 | FL ---
EXAMINATION TYPE: FL guided pain mgmt statistic DATE OF EXAM: 01/01/2025 CLINICAL INDICATION: Male, 74 years old with history of Yasir Lumbar Rad Freq; PHH, pain. TECHNIQUE: Fluoroscopy. COMPARISON: None. FINDINGS: Fluoroscopic guidance was provided during pain relief procedure performed by Dr. Feliciano. A total of 15.7 seconds of fluoroscopic time was utilized during the procedure and 7 spot images are acquired. Images acquired shows needle localization at several levels in the lumbar spine. Mild deg enerative changes are present. Total DAP: 0.71107 mGym2. IMPRESSION: As Above. [facility], , 01/01/2025 8:52 AM
[2025-01-01 09:10] VITALS: BP 156/94; PULSE 68
== END 2025-01-01 09:11 ==
LOC: ORPAIN 06:13
PROVIDERS: ATTEND Anesthesiology
DX: M47.816 Spondylosis without myelopathy or radiculopathy, lumbar region (principal); Z88.5 Allergy status to narcotic agent; Z88.8 Allergy status to other drugs, medicaments and biological substances; Z79.82 Long term (current) use of aspirin; Z79.899 Other long term (current) drug therapy
CPT/HCPCS: 64635; 64636 ×2; J3010; J2795; J1920; 99152; 99153

== ENCOUNTER → 2025-01-24 | Outpatient (CLI) | payer MEDICARE ==
[2025-01-24 12:25] VITALS: BP 150/89; PULSE 77; RESP 16; TEMP 98.1
--- NOTE | 2025-01-24 15:17 | P.PAINPG ---
Objective - Vital Signs Vital signs: Intake & Output 01/23/25 01/24/25 01/24/25 18:59 06:59 18:59 Weight 106.594 kg PQRS Measure Charge Sheet Comment: HISTORY OF PRESENT ILLNESS: A 74 yr old male w at side presents today w severe and chronic LBP > 1 yr secondary to radiculopathy, spondylosis and facet arthropathy without myelopathy for evaluation s/p BL RFA L4-L5/ L5-S1. Pt states he experienced 95 % pain relief s/p procedure. Pt states pain level is provoked at 5-6 /10 in intensity, intermittent, localized in the lumbar spine, predominantly axial, achy in character without shooting pain. Pain is provoked by standing, walking for periods > 15 min. Pain is alleviated by PT x 6 wks which ended in May 2024 (cerv), physician guided home stretches daily since May 2024, heat, medications, topical, use of a cane for ambulatory assistance, repositioning and rest. Interventional procedures include BRIANA L2-L3 x1, L5-S1 x1, BL RFA L3-L5 (01/23) Medications include Neurontin, Robaxin, Tyl, Ibu, Icy-Hot REVIEW OF ORGAN SYSTEMS: CONSTITUTIONAL: No fevers or chills. No recent weight loss. NEUROLOGICAL: + numbness and tingling along the distal extremities. No seizure disorders or headaches. MUSCULOSKELETAL: + pain PSYCHIATRIC: Denies current depression or suicidal thoughts. Physical Examinations : Constitutional : Cooperative , not in acute distress . Neurologic : Cranial nerve II to XII intact. No focal neurological deficits. Psychiatric : alert & oriented x 3. Matching mood & appropriate affect. Judgment & insight intact. Musculoskeletal : Cervical Spine Motor strength in the deltoid and biceps: Normal right side. Normal Left side Motor strength biceps and the wrist extensors: Normal right side . Normal left side Motor strength in the triceps muscle: Normal right side. Normal left side Deep tendon reflexes: Normal at the biceps. Normal at Brachioradialis. Normal at triceps Vertebral body tenderness to deep palpation over Cervical facet loading test: positive bilaterally Spurling test: positive bilaterally Neck distraction test: positive bilaterally Misbah sign: positive bilaterally Lumbar spine Motor strength lower extremities ,thigh and legs 5/5 Right side , 5/5 Left side Deep tendon reflexes : Normal Knee Jerk. Normal Ankle Jerk Vertebral body tenderness over L5 Ferrell Test positive BL L5-S1 Lumbar facet Loading Test: positive Right / positive Left L4-L5, L5-S1 Range of motion of the lumbar spine Flexion 30 degrees, extension 10 degrees Straight Leg Raise test: Left/ Right positive at degrees Pastora test: positive right / positive left. Severe tenderness over the Sacroiliac joint on the Right / Left sides Gaenslen test: positive bilaterally Seated flexion test: positive bilaterally. Sacral spine : Severe tenderness over the Sacroiliac joint: right side / left side Range of motion: Flexion of the lumbar spine <60 degrees Range of motion: Extension of the lumbar spine <20 degrees Gaenslen's Test positive Pastora test: positive right side / left side Thigh Thrust Test Sacral Thrust Test Imaging: MRI non contrast lumbar spine from 05/22/24 reviewed Assessment/ Plan : L2-L3 & L5-S1 radiculopathy Recommendation of BL iliolumbar ligament #1. Risks, benefits of procedure discussed and patient verbalized understanding. All questions answered. I have spent greater than 30 minutes on patient care today. Dr Jimenez was available by phone for the evaluation of this patient. The time was used to review the medical records including relevant urine studies and Prescription history (MAPs), review of the available imaging, evaluation and examination of the patient, coordination of care with the medical staff and if applicable referring physicians, as well as creation of the medical record - Pain Location Bilateral Lower Back Non-Pharmacological Interventions: Home Exercise, Physical Therapy Pharmacological Interventions: PRN Medication PQRS Narrative: Hx Alcohol Use (MH) No Home Medications: Ambulatory Orders Atorvastatin [Lipitor] 40 mg PO DAILY 08/08/24 EPINEPHrine (Auto Inject) [Epipen] 0.3 mg IM ONCE PRN 08/08/24 Escitalopram Oxalate [Lexapro] 10 mg PO DAILY 08/08/24 Finasteride [Proscar] 5 mg PO DAILY 08/08/24 Levothyroxine Sodium [Synthroid] 200 mcg PO DAILY 08/08/24 QUEtiapine FUMARATE [SEROquel] 200 mg PO HS 08/08/24 amLODIPine [Norvasc] 10 mg PO DAILY 08/08/24 buPROPion XL [Wellbutrin XL] 300 mg PO DAILY 08/08/24 carvediloL [Coreg] 12.5 mg PO BID 08/08/24 metFORMIN HCL [Glucophage] 1,000 mg PO BID 08/08/24 Albuterol Sulfate [Proair Digihaler] 1 puff INHALATION DAILY PRN 08/29/24 Alfuzosin HCl [Alfuzosin HCl ER] 10 mg PO HS 08/29/24 Aspirin EC [Ecotrin] 325 mg PO DAILY 08/29/24 Controlled Substance Measures - Controlled Substance Measures Is patient prescribed a controlled substance at discharge?: No
== END ==
LOC: PNWHC3 12:08
PROVIDERS: ATTEND Specialist
DX: M47.27 Other spondylosis with radiculopathy, lumbosacral region (principal); Z88.5 Allergy status to narcotic agent; Z88.8 Allergy status to other drugs, medicaments and biological substances
CPT/HCPCS: 99211

== ENCOUNTER 2025-02-15 06:19 | Day surgery (SDC) | payer MEDICARE ==
[2025-02-15] MEDS ORDERED: LACTATED RINGERS 1,000 ML IV SCH (06:48)
[2025-02-15 07:01] VITALS: TEMP 97
[2025-02-15 07:07] LABS: Glucose,Whole Blood 93 mg/dL (70-110)
[2025-02-15] MEDS ORDERED: ROPIVACAINE 5 MG/ML 30 ML VIAL ONE (07:55)
[2025-02-15] MEDS ORDERED: methylPREDNISolone ACETATE 80 MG/ML 1 ML VIAL ONE (07:55)
[2025-02-15 08:16] VITALS: RESP 16
--- NOTE | 2025-02-15 08:20 | P.PCN ---
Description of Procedure: Preprocedure diagnosis. Bilateral iliolumbar ligament pain. Postprocedure diagnosis. As above. Procedure done. BILATERAL iliolumbar ligament injection with local anesthetics and steroid under fluoroscopic guidance. Anesthesia. Local infiltration of local anesthetics. Blood loss. None. Indication. Discussed the procedure and possible complications which may include infection bleeding nerve damage paralyzes aggravation of pain all of which could be permanent. Patient understands and QUESTIONS were answered. Procedure note. After getting consent patient was taken to OR in prone position. Back prepped with chlorhexidine and draped in sterile fashion. After injecting 5 mL of plain 1% lidocaine subcutaneously a 22-gauge spinal needle was introduced under tunnel vision of the fluoroscope on the RIGHT iliolumbar ligament area just below the right L5 transverse process. The needle position confirmation by AP and crosstable lateral view of the fluoroscope, after negative aspiration, 1.5 mL solution was injected which consists of 1 mL of 40 mg Depo-Medrol mixed with 0.5 ml of 0.5% Ropivacaine. In exactly the same way LEFT iliolumbar ligament injected with same amount of solution. [place] were taken out. Disposition. Patient tolerated the procedure well. No complication. Discharged home in stable condition.
[2025-02-15 08:32] VITALS: BP 145/85; PULSE 66
--- NOTE | 2025-02-15 09:49 | FL ---
EXAMINATION TYPE: FL guided pain mgmt statistic DATE OF EXAM: 02/15/2025 8:16 AM COMPARISON: Pre Operative Images if available both CT/MRI or plain film CLINICAL INDICATION: Male, 74 years old with history of M47.816 INJ SNG TENDON; TECHNIQUE: FL guided pain mgmt statistic, multiple fluoroscopic images provided for procedure. DAP: 0.92033 mGym2 Gycm2 uGym2 cGycm2 or equivalent. FINDINGS: Fluoroscopic images during injection for pain management demonstrate multilevel degeneration changes throughout the spine. No evidence for fracture. No acute process identified. IMPRESSION: 1. No evidence for intraoperative complication. 2. Please see the operative/procedural note for further details. [facility], , 02/15/2025 9:47 AM
== END 2025-02-15 08:46 | disposition home or self-care (01) ==
LOC: ORPAIN 06:19
PROVIDERS: ATTEND Pain Medicine Interventional Pain Medicine
DX: M79.18 Myalgia, other site (principal); E11.9 Type 2 diabetes mellitus without complications; Z88.5 Allergy status to narcotic agent; Z88.1 Allergy status to other antibiotic agents; Z79.84 Long term (current) use of oral hypoglycemic drugs; Z79.899 Other long term (current) drug therapy
CPT/HCPCS: 20550; J2795; J1010